=== PATIENT | female | born 1960 | race African-American/Black ===

== ENCOUNTER 2016-12-04 14:00 | Emergency (ER) | payer MEDICAID ==
[~2016-12-04] VITALS: Ht 172.7 cm; Wt 116.6 kg
[2016-12-04 16:31] VITALS: BP 103/70
[2016-12-04] MEDS ORDERED: ONDANSETRON HCL 4 MG/2 ML VIAL IM ONE (16:45)
[2016-12-04] MEDS ORDERED: METHOCARBAMOL 500 MG TAB PO ONE (16:45)
[2016-12-04] MEDS ORDERED: HYDROmorphone HCL 2 MG/ML VL IM ONE (16:45)
[2016-12-04] MEDS ORDERED: NEOMYCIN-BACITRACIN-POLYM UNITDOSE PKG TOP OINT TOP ONE (16:45)
[2016-12-04] MEDS ORDERED: diphenhdrAMINE HCL 50 MG/1 ML VL IM ONE (18:15)
== END 2016-12-04 20:26 | disposition home or self-care (01) ==
LOC: ER 14:01
DX: S39.012A Strain of muscle, fascia and tendon of lower back, initial encounter (principal); I10 Essential (primary) hypertension; M54.5 Low back pain; G89.29 Other chronic pain; M43.16 Spondylolisthesis, lumbar region; W01.0XXA Fall on same level from slipping, tripping and stumbling without subsequent striking against object, initial encounter; Y93.89 Activity, other specified; Y99.8 Other external cause status; Y92.091 Bathroom in other non-institutional residence as the place of occurrence of the external cause
CPT/HCPCS: 72100; 96372; 99284; J1170; J1200; J2405

== ENCOUNTER 2017-06-25 10:55 | Emergency (ER) | payer MEDICAID ==
[~2017-06-25] VITALS: Ht 175.3 cm; Wt 108.9 kg
[2017-06-25] MEDS ORDERED: SODIUM CHLORIDE 0.9% 1,000 ML IV ONE (12:10)
[2017-06-25] MEDS ORDERED: KETOROLAC TROMETH 30 MG/ML 1ML VIAL IV ONE (12:15)
[2017-06-25] MEDS ORDERED: METOCLOPRAMIDE HCL 5MG/ml INJ 2ml VIAL IV ONE (12:15)
[2017-06-25 13:23] VITALS: BP 137/91
[2017-06-25 13:51] LABS: Basophils # (auto) 0 uL; Basophils % (auto) 0.4 % (0.0-2.0); CONDITION Y; Eosinophils # (auto) 0.1 uL; Eosinophils % (auto) 0.8 % (0.0-7.0); Hematocrit 40.9 % (36.0-46.0); Hemoglobin 13.3 g/dL (12.2-16.2); Lymphocytes # (auto) 3.3 uL; Mean Corpuscular Hemoglobin 29.2 pg (28.0-32.0); Mean Corpuscular Hgb Conc. 32.5 g/dL (32.0-36.0); Mean Corpuscular Volume 89.9 fL (80.0-100.0); Mean Platelet Volume 10.6 fL (7.4-10.4); Monocytes # (auto) 0.4 uL; Monocytes % (auto) 4.6 % (0.0-12.0); Neutrophils # (auto) 4.9 uL; Neutrophils % (auto) 56.2 % (37.0-80.0); Platelet Count (auto) 279 10^3/uL (140-450); Red Cell Distribution Width 14.7 % (11.6-16.0); SUSPECT SEE PRINTOUT; White Blood Cell 8.8 10^3/uL (4.4-10.8)
[2017-06-25 13:57] LABS: Urine Bilirubin Negative (Negative); Urine Blood Negative /uL (Negative); Urine Color Yellow (Yellow); Urine Glucose Normal (Normal); Urine Ketone Negative (Negative); Urine Mucus FEW (None Seen); Urine Nitrite Negative (Negative); Urine RBC 2 /hpf (0 - 4); Urine Squamous Epithelial Cell FEW /hpf (<5); Urine Urobilinogen Normal (Negative)
[2017-06-25 14:20] LABS: Albumin 3.3 g/dL (3.4-5.0); BUN/Creatinine Ratio 10.3; Bilirubin, Total 0.4 mg/dL (0.2-1.0); Calcium 8.7 mg/dL (8.5-10.1); Magnesium 2.5 mg/dL (1.6-2.6); Potassium 3.7 mmol/L (3.5-5.1)
== END 2017-06-25 16:21 | disposition home or self-care (01) ==
LOC: ER 10:55
DX: S39.012A Strain of muscle, fascia and tendon of lower back, initial encounter (principal); S80.02XA Contusion of left knee, initial encounter; N39.0 Urinary tract infection, site not specified; Z88.0 Allergy status to penicillin; Z88.6 Allergy status to analgesic agent; W19.XXXA Unspecified fall, initial encounter; Y93.89 Activity, other specified; Y99.8 Other external cause status; Y92.89 Other specified places as the place of occurrence of the external cause
CPT/HCPCS: 36415; 72100; 72170; 73030; 73562; 80053; 81001; 83735; 85025; 96361; 96374; 96375; 99285; J1885; J2765; J7030

== ENCOUNTER 2017-06-26 17:03 | Emergency (ER) | payer MEDICAID ==
[~2017-06-26] VITALS: Ht 170.2 cm; Wt 121.6 kg
[2017-06-26 17:25] VITALS: BP 105/85
[2017-06-26 18:05] LABS: Urine Bilirubin Negative (Negative); Urine Blood Negative /uL (Negative); Urine Color Yellow (Yellow); Urine Glucose Normal (Normal); Urine Ketone Negative (Negative); Urine Mucus FEW (None Seen); Urine Nitrite Negative (Negative); Urine RBC 9 /hpf (0 - 4); Urine Squamous Epithelial Cell MANY /hpf (<5)
== END 2017-06-26 19:16 | disposition left against medical advice (07) ==
LOC: ER 17:06
DX: R30.9 Painful micturition, unspecified (principal); Z53.21 Procedure and treatment not carried out due to patient leaving prior to being seen by health care provider
CPT/HCPCS: 81001

== ENCOUNTER 2017-08-09 10:30 | Emergency (ER) | payer MEDICAID ==
[~2017-08-09] VITALS: Ht 175.3 cm; Wt 118.8 kg
[2017-08-09 10:54] VITALS: BP 145/77
[2017-08-09 11:12] LABS: Urine Bilirubin Negative (Negative); Urine Blood TRACE /uL (Negative); Urine Color Yellow (Yellow); Urine Glucose Normal (Normal); Urine Ketone Negative (Negative); Urine Mucus FEW (None Seen); Urine Nitrite Negative (Negative); Urine RBC 2 /hpf (0 - 4); Urine Squamous Epithelial Cell MOD /hpf (<5); Urine Urobilinogen Normal (Negative); Urine pH 5.5 (5.0-8.0)
[2017-08-09] MEDS ORDERED: SODIUM CHLORIDE 0.9% 1,000 ML IV ONE (11:56)
[2017-08-09] MEDS ORDERED: cefTRIAXone 1GM/50ML D5W 50 ML IV ONE (12:00)
== END 2017-08-09 12:30 | disposition home or self-care (01) ==
LOC: ER 10:30
DX: N39.0 Urinary tract infection, site not specified (principal); I10 Essential (primary) hypertension; Z88.0 Allergy status to penicillin; Z88.6 Allergy status to analgesic agent
CPT/HCPCS: 81001; 81002; 93005

== ENCOUNTER 2018-06-03 17:56 | Emergency (ER) | payer MEDICAID | END 2018-06-03 18:13 | disposition left against medical advice (07) | LOC: ER 18:06 | DX: R07.9 Chest pain, unspecified (principal); Z53.21 Procedure and treatment not carried out due to patient leaving prior to being seen by health care provider ==

== ENCOUNTER 2018-06-11 01:01 | Inpatient (IN) | payer MEDICAID ==
[~2018-06-11] VITALS: Ht 170.2 cm; Wt 121.8 kg
[2018-06-11 02:31] LABS: Basophils # (auto) 0 uL; Basophils % (auto) 0.1 % (0.0-2.0); Eosinophils # (auto) 0 uL; Eosinophils % (auto) 0.1 % (0.0-7.0); Hematocrit 41.6 % (36.0-46.0); Hemoglobin 13.5 g/dL (12.2-16.2); Lymphocytes # (auto) 0.7 uL; Lymphocytes % (auto) 5.2 % (10.0-50.0); Mean Corpuscular Hemoglobin 29.6 pg (28.0-32.0); Mean Corpuscular Hgb Conc. 32.4 g/dL (32.0-36.0); Mean Corpuscular Volume 91.1 fL (80.0-100.0); Monocytes # (auto) 0.5 uL; Monocytes % (auto) 3.3 % (0.0-12.0); Neutrophils # (auto) 13.1 uL; Neutrophils % (auto) 91.3 % (37.0-80.0); Platelet Count (auto) 209 10^3/uL (140-450); Red Blood Cells 4.56 10^6/uL (4.0-5.20); Red Cell Distribution Width 15.2 % (11.8-14.3); White Blood Cell 14.3 10^3/uL (4.4-10.8)
[2018-06-11 02:50] LABS: Albumin 3.2 g/dL (3.4-5.0); Amylase 21 U/L (25-115); Anion Gap 10 (5-15); BUN/Creatinine Ratio 12.3; Blood Urea Nitrogen 15 mg/dL (7-18); Calcium 8.9 mg/dL (8.5-10.1); Carbon Dioxide 29 mmol/L (21-32); Chloride 100 mmol/L (98-107); GFR African American 59 mL/min; GFR Non-African American 48 mL/min; Glucose 137 mg/dL (74-106); Lipase 53 U/L (73-393); Potassium 3.8 mmol/L (3.5-5.1); Sodium 139 mmol/L (136-145)
[2018-06-11 02:56] LABS: Alanine Aminotransferase 55 U/L (13-56); Alkaline Phosphatase 87 U/L (45-117); Aspartate Aminotransferase 61 U/L (15-37); Bilirubin, Total 0.9 mg/dL (0.2-1.0); Total Protein 7.2 g/dL (6.4-8.2)
[2018-06-11] MEDS ORDERED: ONDANSETRON HCL 4 MG/2 ML VIAL IV ONE (05:45)
[2018-06-11] MEDS ORDERED: NALBUPHINE HCL 10 MG/1ml INJECTION IV ONE (05:45)
[2018-06-11 06:28] LABS: Urine Bacteria MANY /hpf (None Seen); Urine Blood 1+ /uL (Negative); Urine Mucus FEW (None Seen); Urine Specific Gravity 1.012 (1.001-1.035); Urine WBC 74 /hpf (0 - 5)
[2018-06-11] MEDS ORDERED: CEFTRIAXONE SODIUM 2 GM in D5W 5% 50 ML IV ONE (06:45)
[2018-06-11] MEDS ORDERED: KETOROLAC TROMETH 30 MG/ML 1ML VIAL IV ONE (06:45)
[2018-06-11] MEDS ORDERED: cefTRIAXone 1GM/10ml IVPUSH 20 ML IV ONE (06:50)
[2018-06-11] MEDS ORDERED: LORazepam 0.5 MG TAB PO PRN (08:15)
[2018-06-11] MEDS ORDERED: traMADol HCL 50 MG TAB PO PRN (08:15)
[2018-06-11] MEDS ORDERED: TEMAZEPAM 15 MG CAP PO PRN (08:15)
[2018-06-11] MEDS ORDERED: KETOROLAC TROMETH 30 MG/ML 1ML VIAL IV PRN (08:15)
[2018-06-11] MEDS ORDERED: NITROGLYCERIN 0.4 MG SL TAB SL PRN (08:15)
[2018-06-11] MEDS: SODIUM CHLORIDE 0.9% 1,000 ML IV SCH ×2 (09:45→18:12)
[2018-06-11] MEDS ORDERED: HYDROcodone-ACET 5/325MG TAB PO PRN (17:15)
[2018-06-11 19:18] LABS: Hematocrit 39.5 % (36.0-46.0); Hemoglobin 12.8 g/dL (12.2-16.2)
[2018-06-11 19:36] LABS: Amylase 16 U/L (25-115); Lipase 51 U/L (73-393)
[2018-06-11] MEDS: PROMETHAZINE HCL 25 MG/ML 1ML IV PRN (19:49)
[2018-06-11] MEDS: MORPHINE SULF INJ 2 MG/ML SYRINGE 1ML IV PRN (19:49)
[2018-06-11] MEDS: PANTOPRAZOLE 40 MG TAB PO SCH (19:49)
[2018-06-11] MEDS: ACETAMINOPHEN 500 MG TAB PO PRN (19:49)
[2018-06-11 22:00] VITALS: BP 112/72
[2018-06-11 22:46] VITALS: BP 112/72
[2018-06-12] MEDS ORDERED: ATEN-60 PO (01:16)
[2018-06-12] MEDS ORDERED: CALC-239 PO (01:16)
[2018-06-12] MEDS ORDERED: CHOL20007 PO (01:16)
[2018-06-12] MEDS ORDERED: HYDR25CA PO (01:16)
[2018-06-12] MEDS ORDERED: BACL10TA PO (01:16)
[2018-06-12] MEDS ORDERED: GABA600T PO (01:16)
[2018-06-12] MEDS ORDERED: HYDR-4683 PO (01:16)
[2018-06-12 02:04] LABS: Hematocrit 27.7 % (36.0-46.0); Hemoglobin 8.9 g/dL (12.2-16.2)
[2018-06-12 05:00] VITALS: BP 118/65
[2018-06-12] MEDS: SODIUM CHLORIDE 0.9% 1,000 ML IV SCH ×2 (08:00→15:17)
[2018-06-12 08:33] LABS: Basophils # (auto) 0 uL; Basophils % (auto) 0.2 % (0.0-2.0); Eosinophils # (auto) 0 uL; Eosinophils % (auto) 0.3 % (0.0-7.0); Hematocrit 38.3 % (36.0-46.0); Hemoglobin 12.5 g/dL (12.2-16.2); Lymphocytes % (auto) 9.6 % (10.0-50.0); Mean Corpuscular Hemoglobin 30.5 pg (28.0-32.0); Mean Corpuscular Hgb Conc. 32.7 g/dL (32.0-36.0); Mean Corpuscular Volume 93.2 fL (80.0-100.0); Monocytes # (auto) 0.7 uL; Monocytes % (auto) 7.2 % (0.0-12.0); Neutrophils # (auto) 8.4 uL; Neutrophils % (auto) 82.7 % (37.0-80.0); Platelet Count (auto) 170 10^3/uL (140-450); Red Blood Cells 4.11 10^6/uL (4.0-5.20); Red Cell Distribution Width 15.3 % (11.8-14.3); White Blood Cell 10.2 10^3/uL (4.4-10.8)
[2018-06-12] MEDS: cefTRIAXone 1GM/10ml IVPUSH 10 ML IV SCH (08:53)
[2018-06-12] MEDS: MORPHINE SULF INJ 2 MG/ML SYRINGE 1ML IV PRN ×3 (08:53→20:21)
[2018-06-12] MEDS: PROMETHAZINE HCL 25 MG/ML 1ML IV PRN ×3 (08:54→22:40)
[2018-06-12] MEDS: PANTOPRAZOLE 40 MG TAB PO SCH ×2 (08:54→21:47)
[2018-06-12] MEDS ORDERED: cefTRIAXone 1GM/10ml IVPUSH 10 ML IV SCH (09:00)
[2018-06-12 09:06] VITALS: BP 151/65
[2018-06-12 11:56] VITALS: BP 129/37
[2018-06-12 16:55] VITALS: BP 117/47
[2018-06-12 20:00] VITALS: BP 129/44
[2018-06-12] MEDS: GABAPENTIN 300 MG CAP PO SCH (21:47)
[2018-06-12 21:59] VITALS: BP 129/44
[2018-06-12] MEDS: ACETAMINOPHEN 500 MG TAB PO PRN (22:30)
[2018-06-13] MEDS: SODIUM CHLORIDE 0.9% 1,000 ML IV SCH ×2 (00:11→09:02)
[2018-06-13] MEDS: MORPHINE SULF INJ 2 MG/ML SYRINGE 1ML IV PRN ×3 (04:38→13:20)
[2018-06-13] MEDS: PROMETHAZINE HCL 25 MG/ML 1ML IV PRN ×3 (04:38→13:19)
[2018-06-13 05:00] VITALS: BP 139/70
[2018-06-13 08:00] VITALS: BP 151/71
[2018-06-13 09:00] VITALS: BP 151/71
[2018-06-13] MEDS: PANTOPRAZOLE 40 MG TAB PO SCH (09:02)
[2018-06-13] MEDS: GABAPENTIN 300 MG CAP PO SCH (09:02)
[2018-06-13] MEDS: cefTRIAXone 1GM/10ml IVPUSH 10 ML IV SCH (09:02)
[2018-06-13 11:37] LABS: Basophils # (auto) 0 uL; Basophils % (auto) 0.4 % (0.0-2.0); Eosinophils # (auto) 0 uL; Eosinophils % (auto) 0.6 % (0.0-7.0); Hematocrit 37.4 % (36.0-46.0); Hemoglobin 12.3 g/dL (12.2-16.2); Lymphocytes % (auto) 15.8 % (10.0-50.0); Mean Corpuscular Hemoglobin 30.2 pg (28.0-32.0); Mean Corpuscular Hgb Conc. 32.8 g/dL (32.0-36.0); Mean Corpuscular Volume 92.1 fL (80.0-100.0); Monocytes # (auto) 0.7 uL; Monocytes % (auto) 11.9 % (0.0-12.0); Neutrophils # (auto) 4.3 uL; Neutrophils % (auto) 71.3 % (37.0-80.0); Nucleated Red Blood Cells % 0.1 %; Platelet Count (auto) 182 10^3/uL (140-450); Red Blood Cells 4.06 10^6/uL (4.0-5.20); Red Cell Distribution Width 14.8 % (11.8-14.3); White Blood Cell 6.1 10^3/uL (4.4-10.8)
[2018-06-13 11:55] LABS: BUN/Creatinine Ratio 6.6; Calcium 8.6 mg/dL (8.5-10.1); Potassium 3.8 mmol/L (3.5-5.1)
[2018-06-13 13:00] VITALS: BP 136/65
[2018-06-13 14:40] VITALS: BP 136/65
== END 2018-06-13 15:55 | disposition home or self-care (01) | DRG 720 ==
LOC: ER 01:05 → TELE 01:06 → TELE-WESTW 19:31
PROVIDERS: ADMIT Internal Medicine; ATTEND Internal Medicine
DX: A41.9 Sepsis, unspecified organism (principal); Z68.41 Body mass index [BMI] 40.0-44.9, adult; I10 Essential (primary) hypertension; E66.01 Morbid (severe) obesity due to excess calories; G89.29 Other chronic pain; M19.90 Unspecified osteoarthritis, unspecified site; K92.1 Melena; N12 Tubulo-interstitial nephritis, not specified as acute or chronic; M54.9 Dorsalgia, unspecified; Z90.49 Acquired absence of other specified parts of digestive tract; Z88.5 Allergy status to narcotic agent; Z88.0 Allergy status to penicillin
CPT/HCPCS: 36415; 71045; 74176; 76705; 80048; 80053; 81001; 82150; 83690; 84484; 85014; 85018; 85025; 85045; 85652; 87040; 87086; 87088; 87186; 93005; 96374; 96375; 96376; A6257; J0696; J1885; J2405; J7060

== ENCOUNTER 2018-10-28 11:57 | Emergency (ER) | payer MEDICAID ==
[~2018-10-28] VITALS: Ht 175.3 cm; Wt 108.9 kg
[~2018-10-28 11:57] MED LIST: ATEN-60 PO; BACL10TA PO; CALC-239 PO; CHOL20007 PO; GABA600T PO; HYDR-4683 PO; HYDR25CA PO
[2018-10-28 12:30] VITALS: BP 124/105
[2018-10-28] MEDS ORDERED: IBUPROFEN 800 MG TAB PO ONE (13:15)
[2018-10-28] MEDS ORDERED: METHOCARBAMOL 500 MG TAB PO ONE (13:15)
== END 2018-10-28 13:16 | disposition home or self-care (01) ==
LOC: ER 11:59
DX: S10.93XA Contusion of unspecified part of neck, initial encounter (principal); I10 Essential (primary) hypertension; Z88.0 Allergy status to penicillin; Z88.6 Allergy status to analgesic agent; Y04.8XXA Assault by other bodily force, initial encounter; Y93.89 Activity, other specified; Y92.89 Other specified places as the place of occurrence of the external cause; Y99.8 Other external cause status

== ENCOUNTER 2020-06-02 09:32 | Inpatient (IN) | payer MEDICAID ==
[~2020-06-02] VITALS: Ht 175.3 cm; Wt 112.8 kg
[~2020-06-02 09:32] MED LIST changes: -ATEN-60 PO; +ATEN50TA; +ATOR40TA52; +BUPR300T43; +CLO01T; +DOCU1CAP31; +FENO145T27; -HYDR-4683 PO; +HYDR-4833 PO; +HYDR-531
[2020-06-02] MEDS ORDERED: SODIUM CHLORIDE 0.9% 1,000 ML IV ONE (09:57)
[2020-06-02 10:53] LABS: Basophils # (auto) 0.1 10 ^3/uL (0-0.2); Basophils % (auto) 0.6 % (0.0-2.0); Eosinophils # (auto) 0 10 ^3/uL (0-0.8); Eosinophils % (auto) 0.5 % (0.0-7.0); Hemoglobin 13.8 g/dL (12.2-16.2); Lymphocytes # (auto) 2.2 10 ^3/uL (0.4-5.4); Lymphocytes % (auto) 26.6 % (10.0-50.0); Mean Corpuscular Hemoglobin 28.7 pg (28.0-32.0); Mean Corpuscular Hgb Conc. 31.3 g/dL (32.0-36.0); Mean Corpuscular Volume 91.7 fL (80.0-100.0); Monocytes # (auto) 0.4 10 ^3/uL (0-1.3); Neutrophils # (auto) 5.5 10 ^3/uL (1.6-8.6); Neutrophils % (auto) 67.3 % (37.0-80.0); Nucleated Red Blood Cells % 0.1 %; Platelet Count (auto) 213 10^3/uL (140-450); Red Cell Distribution Width 14.2 % (11.8-14.3); White Blood Cell 8.1 10^3/uL (4.4-10.8)
[2020-06-02 11:05] LABS: Urine Bacteria FEW /hpf (None Seen); Urine Blood TRACE /uL (Negative); Urine WBC 1 /hpf (0 - 5)
[2020-06-02 11:11] LABS: Albumin 3.7 g/dL (3.4-5.0); Anion Gap 9 (5-15); Blood Urea Nitrogen 15 mg/dL (7-18); Calcium 9.1 mg/dL (8.5-10.1); Carbon Dioxide 23 mmol/L (21-32); Chloride 91 mmol/L (98-107); Magnesium 2.5 mg/dL (1.6-2.6); Potassium 4.3 mmol/L (3.5-5.1); Sodium 123 mmol/L (136-145)
[2020-06-02 11:19] LABS: Alanine Aminotransferase 25 U/L (13-56); Alkaline Phosphatase 101 U/L (45-117); Aspartate Aminotransferase 16 U/L (15-37); BUN/Creatinine Ratio 9.8; Bilirubin, Total 0.5 mg/dL (0.2-1.0); GFR African American 45 mL/min; GFR Non-African American 37 mL/min; Total Protein 7.8 g/dL (6.4-8.2)
[2020-06-02 11:26] LABS: Glucose 815 mg/dL (74-106)
[2020-06-02] MEDS ORDERED: InsuLIN REG 1unit/0.01ml Soln (100units/ml) IV ONE (11:45)
[2020-06-02] MEDS: SODIUM CHLORIDE 0.9% 1,000 ML IV SCH ×2 (12:23→19:02)
[2020-06-02] MEDS ORDERED: INSULIN LANTUS (GLARGINE) 1 /0.01ml (100units/ml) SC ONE (12:30)
[2020-06-02] MEDS ORDERED: DEXTROSE (50%) 50ML SYRG IV PRN (12:30)
[2020-06-02] MEDS ORDERED: MORPHINE SULF INJ 2 MG/ML SYRINGE 1ML IV PRN ×2 (12:30)
[2020-06-02] MEDS ORDERED: ACETAMINOPHEN 500 MG TAB PO PRN (12:30)
[2020-06-02] MEDS ORDERED: cefTRIAXone 1GM/50ML D5W 50 ML IV ONE (12:30)
[2020-06-02] MEDS ORDERED: traMADol HCL 50 MG TAB PO PRN (12:30)
[2020-06-02] MEDS ORDERED: NITROGLYCERIN 0.4 MG SL TAB SL PRN (12:30)
[2020-06-02] MEDS ORDERED: PROMETHAZINE HCL 25 MG/ML 1ML IV PRN (12:30)
[2020-06-02] MEDS ORDERED: TEMAZEPAM 15 MG CAP PO PRN (12:30)
[2020-06-02 12:59] LABS: Amylase 30 U/L (25-115); Lipase 129 U/L (73-393)
[2020-06-02] MEDS ORDERED: ATOR40TA52 PO (13:39)
[2020-06-02] MEDS ORDERED: HYDR-4072 PO (13:39)
[2020-06-02] MEDS ORDERED: DULO60CA PO (13:39)
[2020-06-02] MEDS ORDERED: DOCU1CAP46 PO (13:39)
[2020-06-02] MEDS ORDERED: BACL10TA PO (13:39)
[2020-06-02] MEDS ORDERED: OMEP-263 PO (13:39)
[2020-06-02] MEDS ORDERED: BUPR300T43 PO (13:39)
[2020-06-02] MEDS ORDERED: ATEN50TA PO (13:39)
[2020-06-02] MEDS: ACCU-CHEK COMFORT CURVE STRIP VI SCH ×3 (15:59→23:03)
[2020-06-02] MEDS: InsuLIN REG 1unit/0.01ml Soln (100units/ml) SC SCH ×3 (16:05→23:08)
--- NOTE | 2020-06-02 19:30 | NUR ---
Opening Shift Note Assumed care of patient, AOX4. No S/S of distress/SOB or pain. Fall and safety precautions in place. Call light within reach and able to use. Instructed on POC and to call for assist PRN, patient verbalized understanding and in agreement. Will continue to monitor for changes Q1hr and PRN.
[2020-06-02] MEDS: INSULIN LANTUS (GLARGINE) 1 /0.01ml (100units/ml) SC SCH (21:10)
[2020-06-02] MEDS: FAMOTIDINE 20 MG TAB PO SCH (21:11)
[2020-06-02 22:00] VITALS: BP 121/72
[2020-06-03] MEDS: SODIUM CHLORIDE 0.9% 1,000 ML IV SCH ×3 (01:43→15:03)
[2020-06-03] MEDS: ACCU-CHEK COMFORT CURVE STRIP VI SCH ×4 (04:18→16:00)
[2020-06-03] MEDS: InsuLIN REG 1unit/0.01ml Soln (100units/ml) SC SCH ×4 (04:22→16:00)
--- NOTE | 2020-06-03 04:30 | NUR ---
IV removal Patient c/o pain at iv site. IV DC'd with clean sterile technique, catheter fully intact. Pressure dressing applied to site. Patient tolerated well.
--- NOTE | 2020-06-03 04:40 | NUR ---
IV insertion IV access obtained, via clean sterile technique by inserting 22 gauge catheter at RIGHT HAND on first aatempt. IV secured properly. No trauma to site. Patient tolerated well. Will continue to monitor.
[2020-06-03 05:00] VITALS: BP 129/89
--- NOTE | 2020-06-03 05:00 | NUR ---
c/o generalized itchiness patient c/o generalized itchiness. paged on-call hosp. awaiting call back. will continue to monitor.
--- NOTE | 2020-06-03 05:04 | NUR ---
new orders received call back from on-call hospitalist. updated md on patient status. new order received, read back and verified (see new orders). will carry out. will continue to monitor.
[2020-06-03] MEDS ORDERED: diphenhdrAMINE HCL 25 MG CAP PO PRN (05:15)
[2020-06-03] MEDS: INSULIN LANTUS (GLARGINE) 1 /0.01ml (100units/ml) SC SCH (06:06)
[2020-06-03 07:38] LABS: Calcium 8.3 mg/dL (8.5-10.1); Potassium 3.4 mmol/L (3.5-5.1)
[2020-06-03 07:42] LABS: BUN/Creatinine Ratio 13.1
[2020-06-03 07:44] LABS: Bilirubin, Total 0.6 mg/dL (0.2-1.0); Total Protein 6.6 g/dL (6.4-8.2)
[2020-06-03] MEDS ORDERED: cefTRIAXone 1GM/50ML D5W 50 ML IV SCH (09:00)
[2020-06-03] MEDS: FAMOTIDINE 20 MG TAB PO SCH (11:27)
[2020-06-03 14:59] VITALS: BP 148/88
[2020-06-03 15:10] VITALS: BP 148/88
--- NOTE | 2020-06-03 16:00 | NUR ---
Discharge instructions given as ordered. Pt encouraged to follow up with primary care physician as instructed. Medication reconciliation done. IV removed with catheter intact, pressure dressing applied. Attempted to reinforce teaching regarding diabetes and diabetic care. Pt very impatient, and refused teaching at this time, stating "I'll get everything I need to know from the pharmacy". Written prescriptions given to pt at time of discharge. Pt refused to accept printed flyer regarding outside diabetic group for educational classes, stating "I just don't want it". Contact information documented in printed discharge instructions regarding diabetic group, facilitated by Sheila Perez, RN , CDE at . Telemetry unit returned to ICU. Patient discharged, accompanied by self. Pt verbalized, and signed form indicating, that she has all personal belongings at time of discharge. Pt refused to be accompanied by staff member. Pt states that family members are waiting in parking lot at this time to provide transportation. No distress noted at time of departure.
== END 2020-06-03 16:00 | disposition home or self-care (01) | DRG 420 ==
LOC: ER 09:32 → TELE 09:33 → TELE-WESTW 17:59
PROVIDERS: ADMIT Internal Medicine; ATTEND Internal Medicine
DX: E11.65 Type 2 diabetes mellitus with hyperglycemia (principal); E66.01 Morbid (severe) obesity due to excess calories; F12.90 Cannabis use, unspecified, uncomplicated; K64.9 Unspecified hemorrhoids; Z83.3 Family history of diabetes mellitus; N39.0 Urinary tract infection, site not specified; I10 Essential (primary) hypertension; Z90.49 Acquired absence of other specified parts of digestive tract; Z88.0 Allergy status to penicillin; Z88.5 Allergy status to narcotic agent; Z68.38 Body mass index [BMI] 38.0-38.9, adult
CPT/HCPCS: 36415; 71046; 80053; 81001; 82150; 82962; 83036; 83690; 83735; 84484; 85025; 87086; G0378; J0696; J1815